=== PATIENT | male | born 1995 | race Caucasian/White ===

== ENCOUNTER 2017-04-23 17:46 | Emergency (ER) | payer OTHER ==
[~2017-04-23] VITALS: Ht 185.4 cm; Wt 79.5 kg
[2017-04-23 18:12] VITALS: BP 134/63; TEMP 98.6
[2017-04-23] MEDS ORDERED: FLEXERIL 1010 MG/TAB PO (21:24)
[2017-04-23 21:32] VITALS: PULSE 60
== END 2017-04-23 21:34 | disposition home or self-care (01) ==
LOC: COL.ER 17:46
DX: S16.1XXA Strain of muscle, fascia and tendon at neck level, initial encounter (principal); X50.0XXA Overexertion from strenuous movement or load, initial encounter
CPT/HCPCS: J1885; J2360